=== PATIENT | female | born 1955 | race Caucasian/White ===

== ENCOUNTER 2016-12-02 15:58 | Emergency (ER) | payer OTHER ==
[2016-12-02 17:26] LABS: HEMOGLOBIN 15.2 gm/dl (12.3-15.3); RED BLOOD COUNT 4.79 M/UL (4.00-5.10); WHITE BLOOD COUNT 8.5 K/UL (4.5-11.0)
[2016-12-02 17:56] LABS: BUN/CREATININE RATIO 18 (0-10)
== END 2016-12-02 19:40 | disposition home or self-care (01) ==
LOC: ER1 15:58
PROVIDERS: Family Medicine
DX: H81.399 Other peripheral vertigo, unspecified ear (principal); E87.6 Hypokalemia; I10 Essential (primary) hypertension; E78.5 Hyperlipidemia, unspecified; F17.210 Nicotine dependence, cigarettes, uncomplicated; Z79.899 Other long term (current) drug therapy
CPT/HCPCS: 36415; 70450; 71010; 80053; 81001; 82550; 82553; 83874; 84484; 85025; 93005; 96374; 99284; J2405

== ENCOUNTER → 2021-01-11 | Outpatient (CLI) | payer MEDICARE, SELFPAY ==
[~2021-01-11] MED LIST: ALDACTAZIDE 251 EACH PO; ASPIR 8181 MG PO; ATORVASTATIN CA20 MG PO; BRILINTA 90 MG90 MG PO; CELEXA40 MG PO; COLACE 100MG C100 MG PO; ESCITALOPRAM OX20 MG PO; FUROSEMIDE20 MG PO; IBUPROFEN600 MG PO; IMDUR ER TAB 3030 MG PO; K-DUR TAB 20 M20 MEQ PO; KLONOPIN TAB 00.5 MG PO; LIDOPATCH1 EACH TP; LIPITOR TAB 2020 MG PO; LOPRESSOR 25 MG25 MG PO; NORCO 5-325 TA1 EACH PO; PRAMIPEXOLE0.125 MG PO; SINGULAIR10 MG PO; VITAMIN D35000 UNI1 PO; XYZAL5 MG PO; ZANAFLEX4 MG PO; ZETIA10 MG PO
== END ==
LOC: EMI 10:54
DX: M54.5 Low back pain (principal); M51.36 Other intervertebral disc degeneration, lumbar region; M51.37 Other intervertebral disc degeneration, lumbosacral region
CPT/HCPCS: 72148

== ENCOUNTER → 2021-03-19 | Outpatient (CLI) | payer MEDICARE | LOC: HEART 5 09:21 | DX: I25.10 Atherosclerotic heart disease of native coronary artery without angina pectoris (principal); R06.02 Shortness of breath; I34.0 Nonrheumatic mitral (valve) insufficiency; I36.1 Nonrheumatic tricuspid (valve) insufficiency | CPT/HCPCS: 71045; 93306 ==

== ENCOUNTER → 2021-05-22 | Outpatient (CLI) | payer MEDICARE | LOC: RAD 14:38 | DX: M43.10 Spondylolisthesis, site unspecified (principal) | CPT/HCPCS: 72100 ==

== ENCOUNTER → 2021-09-04 | Outpatient (CLI) | payer MEDICARE | LOC: RAD 11:58 | DX: M43.17 Spondylolisthesis, lumbosacral region (principal) | CPT/HCPCS: 72100 ==

== ENCOUNTER → 2021-09-23 | Outpatient (CLI) | payer MEDICARE ==
[2021-09-23 11:02] LABS: RED BLOOD COUNT 4.67 M/UL (4.00-5.10); WHITE BLOOD COUNT 7.1 K/UL (4.5-11.0)
== END ==
LOC: LAB 10:19
PROVIDERS: Family Medicine
DX: E78.5 Hyperlipidemia, unspecified (principal); E55.9 Vitamin D deficiency, unspecified
CPT/HCPCS: 36415; 80053; 80061; 84439; 84443; 85027

== ENCOUNTER → 2021-10-09 | Outpatient (CLI) | payer MEDICARE | LOC: DTC 09:10 | DX: E11.9 Type 2 diabetes mellitus without complications (principal); Z71.3 Dietary counseling and surveillance | CPT/HCPCS: G0109 ==

== ENCOUNTER → 2022-03-27 | Outpatient (CLI) | payer MEDICARE | LOC: KOH-I 13:42 | DX: Z87.891 Personal history of nicotine dependence (principal); R91.8 Other nonspecific abnormal finding of lung field | CPT/HCPCS: 71271 ==

== ENCOUNTER → 2022-04-02 | Outpatient (CLI) | payer MEDICARE | LOC: EXRD 11:07 → MAMO 04-16 14:00 | DX: M25.562 Pain in left knee (principal); Z96.652 Presence of left artificial knee joint; M17.12 Unilateral primary osteoarthritis, left knee | CPT/HCPCS: 73562 ==

== ENCOUNTER → 2022-04-16 | Outpatient (CLI) | payer MEDICARE | LOC: EXRD 12:48 | DX: Z12.31 Encounter for screening mammogram for malignant neoplasm of breast (principal); M85.80 Other specified disorders of bone density and structure, unspecified site | CPT/HCPCS: 77063; 77067; 77080 ==